=== PATIENT | female | born 1970 | race Two or more races ===

== ENCOUNTER 2024-07-20 08:00 | Outpatient (RCR) | payer MEDICAID, SELFPAY ==
--- NOTE | 2024-07-06 17:44 | PT.ODAYNRPT ---
PT Outpatient Daily Note OP Daily Note Outpatient Physical Therapy Treatment Date: 07/06/24 Visit Reasons: Pain in left knee Subjective: Pt says her R knee is less painful now and not hurting today Objective: See F/S for therex MHP: x5' pre Rx Assessment: Low pain level today with therex Plan: Continue with therapy sessions Length of Time (minutes) of Treatment: 30 Minutes Procedure Charges Therapeutic Exercise 30 minutes: Yes
--- NOTE | 2024-07-20 15:05 | PT.ODAYNRPT ---
PT Outpatient Daily Note OP Daily Note Outpatient Physical Therapy Treatment Date: 07/20/24 Visit Reasons: Pain in left knee Subjective: Pt says her R knee is less painful now and not hurting today Objective: See F/S for therex MHP: x5' pre Rx Assessment: Low pain level today with therex Plan: Continue with therapy sessions Length of Time (minutes) of Treatment: 30 Minutes Procedure Charges Therapeutic Exercise 30 minutes: Yes
--- NOTE | 2024-07-20 15:18 | PT.ODS1RPT ---
PT OP Progress/Discharge Note Date of Service: 07/20/24 Progress Note/DC Note Progress Note/Discharge Note: DC Note Patient Information Visit Reasons: Pain in left knee Service Continue Service or Discharge: Discharge Discharge Date: 07/20/24 Status Subjective: Pt says her R knee is less painful now and not hurting today. She wants to D/C from therapy to do HEP. Objective: L knee AROM: Flexion: 120 deg Extension: full Strength: 4/5 Assessment: Pt has attended 7 Rx sessions with good progress with therapy goals. Pt can walk straight for 100' to meet that goal. She can do work duties for a shift with less than 3/10 knee pain to meet that goal and she is independent with HEP. Plan: D/C with updated HEP Procedure Charges Therapeutic Exercise 30 minutes: Yes
== END 2024-08-01 23:59 | disposition home or self-care (01) ==
LOC: CPTX 08:00
PROVIDERS: PCP Physician Assistant Medical; Referring Provider Physician Assistant Medical; Visit Provider Physician Assistant Medical
DX: M25.562 Pain in left knee (principal); M25.362 Other instability, left knee
CPT/HCPCS: 97110